=== PATIENT | male | born 1960 | race Caucasian/White ===

== ENCOUNTER 2022-06-21 02:04 | Emergency (ER) | payer OTHER, MEDICARE, SELFPAY ==
[2022-06-21 02:05] VITALS: BP 148/110; PULSE 98; RESP 16; TEMP 36.7; O2SAT 98; BMI 25.0
--- NOTE | 2022-06-21 02:16 | XR_ITS ---
PROCEDURE INFORMATION: Exam: XR Chest Exam date and time: 06/21/2022 2:33 AM Age: 62 years old Clinical indication: Injury or trauma; Fall; Blunt trauma (contusions or hematomas) TECHNIQUE: Imaging protocol: Radiologic exam of the chest. Views: 2 views. COMPARISON: No relevant prior studies available. FINDINGS: Lungs: Calcified granuloma right lower lung. Lungs are hyperinflated. Pleural spaces: No pleural effusion. No pneumothorax. Heart/Mediastinum: Cardiac silhouette is normal in size for technique. Bones/joints: Irregularity along the left lateral 7th and 8th ribs may be acute or chronic. Remaining visualized bony structures appear normal for age. IMPRESSION: 1. Hyperinflated but clear lungs. 2. Irregular the left lateral 7th and 8th ribs could be acute or chronic. No pneumothorax or pulmonary contusion demonstrated.
--- NOTE | 2022-06-21 02:16 | CT_ITS ---
PROCEDURE INFORMATION: Exam: CT Head Without Contrast Exam date and time: 06/21/2022 2:52 AM Age: 62 years old Clinical indication: Injury or trauma; Fall TECHNIQUE: Imaging protocol: Computed tomography of the head without contrast. Radiation optimization: All CT scans at this facility use at least one of these dose optimization techniques: automated exposure control; mA and/or kV adjustment per patient size (includes targeted exams where dose is matched to clinical indication); or iterative reconstruction. REPORTING DATA: Count of CT and Cardiac NM exams in prior 12 months: This patient has received 0 known CTs and 0 known cardiac nuclear medicine studies in the 12 months prior to the current study. COMPARISON: No relevant prior studies available. FINDINGS: Brain: Prominent perivascular space in the right basal ganglia. Overall normal brain architecture with well preserved howard-white junction. No evidence of acute intraparenchymal or extra-axial hemorrhage. Cerebral ventricles: No ventriculomegaly. Paranasal sinuses: There is fluid in the sphenoid sinuses. Remaining paranasal sinuses are clear. Mastoid air cells: Visualized mastoid air cells are well aerated. Auditory system: Prominent cerumen in the right external auditory canal. Bones/joints: Unremarkable. No acute fracture. Soft tissues: Unremarkable. IMPRESSION: No evidence of acute intracranial hemorrhage, mass effect, or edema.
--- NOTE | 2022-06-21 02:16 | CT_ITS ---
PROCEDURE INFORMATION: Exam: CT Cervical Spine Without Contrast Exam date and time: 06/21/2022 2:53 AM Age: 62 years old Clinical indication: Injury or trauma; Fall TECHNIQUE: Imaging protocol: Computed tomography of the cervical spine without contrast. Radiation optimization: All CT scans at this facility use at least one of these dose optimization techniques: automated exposure control; mA and/or kV adjustment per patient size (includes targeted exams where dose is matched to clinical indication); or iterative reconstruction. REPORTING DATA: Count of CT and Cardiac NM exams in prior 12 months: This patient has received 0 known CTs and 0 known cardiac nuclear medicine studies in the 12 months prior to the current study. COMPARISON: CT HEAD/BRAIN WO CON 06/21/2022 2:52 AM FINDINGS: Bones/joints: There is no evidence of acute cervical spine fracture or malalignment. There is diffuse cervical degenerative change with bridging anterior osteophytes and prominent facet arthropathy. There is bilateral neural foraminal stenosis at C3-C4 and left neural foraminal stenosis at C4-C5. Bilateral neural foraminal stenosis is demonstrated at C6-C7. Cervical ribs are noted. Lungs: Lung apices are normal. Vasculature: Mild calcification noted at each carotid bifurcation. Soft tissues: Unremarkable. IMPRESSION: No evidence of acute cervical spine fracture or malalignment. Multifocal neural foraminal stenosis is detailed above. Mild calcification noted at each carotid bifurcation.
--- NOTE | 2022-06-21 02:28 | XR_ITS ---
PROCEDURE INFORMATION: Exam: XR Right Hand Exam date and time: 06/21/2022 2:35 AM Age: 62 years old Clinical indication: Numbness; Upper limb; Right TECHNIQUE: Imaging protocol: Radiologic exam of the right hand. Views: 3 or more views. COMPARISON: CR HANDR3 HAND-RT 3 VIEWS 12/02/2016 3:49 PM FINDINGS: Bones/joints: There is a healed deformity of the 3rd distal phalanx. Mild arthropathy noted at the 1st metacarpophalangeal joint and triscaphe articulation. No evidence of acute fracture or dislocation. Soft tissues: No radiopaque foreign body or soft tissue gas. IMPRESSION: Mild arthropathy. No acute bony injury.
--- NOTE | 2022-06-21 02:28 | XR_ITS ---
PROCEDURE INFORMATION: Exam: XR Right Wrist Exam date and time: 06/21/2022 2:37 AM Age: 62 years old Clinical indication: Numbness; Upper limb; Right TECHNIQUE: Imaging protocol: Radiologic exam of the right wrist. Views: 3 or more views. COMPARISON: CR XR HAND RT MIN 3V 06/21/2022 2:35 AM FINDINGS: Bones/joints: There is a tiny ossicle dorsal to the proximal carpal row compatible with a prior avulsion injury. Mild triscaphe arthropathy. Soft tissues: Normal. Vasculature: Early calcification in the radial artery. IMPRESSION: No acute bony injury. Mild radial artery calcific atherosclerosis.
[2022-06-21 02:45] LABS: Basophils % 0.6 % (0.1-2.0); Eosinophils # 0.1 K/mm3 (0.0-0.4); Eosinophils % 2.3 % (0.1-12.0); Hematocrit 37.2 % (42.0-52.0); Hemoglobin 12.3 g/dL (14.1-18.0); Lymphocytes # 1.3 K/mm3 (0.7-4.5); Lymphocytes % 36.6 % (10-50); Mean Corpuscular Hemoglobin 35.9 pg (27.0-31.2); Mean Corpuscular Volume 108.8 fl (80-94); Mean Platelet Volume 9.1 fl (7.4-10.4); Monocytes # 0.3 K/mm3 (0.1-1.0); Monocytes % 8.9 % (1.7-9.3); Neutrophils # 1.8 K/mm3 (1.8-7.8); Neutrophils % 51.6 % (37.0-80.0); Platelet Count 136 K/mm3 (142-424); Red Blood Count 3.42 M/mm3 (4.60-6.20); Red Cell Distribution Width 14.1 % (11.5-17.5); White Blood Count 3.4 K/mm3 (4.8-10.8)
[2022-06-21 02:54] LABS: Alanine Aminotransferase 38 U/L (12-78); Albumin Level 3.5 g/dl (3.5-5.0); Albumin/Globulin Ratio 1.4 (1.1-1.8); Alkaline Phosphatase 85 U/L (38-126); Anion Gap 11.7 mEq/L (5-15); Aspartate Amino Transferase 97 U/L (17-59); Bilirubin,Total 0.9 mg/dl (0.2-1.3); Blood Urea Nitrogen 7 mg/dl (9-20); Calcium 9.6 mg/dl (8.4-10.2); Carbon Dioxide 28 mmol/L (22.0-30.0); Chloride 95 mmol/L (98-107); Creatinine Clearance Estimated 90 mL/min (50-200); Estimated Glomerular Filt Rate 98 ml/min (>60); GFR (African American) 118 ML/MIN (>60); Globulin 2.5 g/dL (1.3-3.2); Glucose 115 mg/dl (74-100); Potassium 3.7 mmoL/L (3.5-5.1); Sodium 131 mmol/L (136-145)
[2022-06-21 02:55] LABS: Ethyl Alcohol 138 mg/dl (0-10)
--- NOTE | 2022-06-21 03:02 | HMH.EDUPEXT ---
Discharge Plan Disposition Patient Disposition: Home, Self-Care Prescriptions Prescriptions: New prednisone [prednisone] 20 mg tablet 20 mg PO DAILY Qty: 10 0RF Referrals Follow up/Referrals: Provider,Referral, MD [Primary Care Provider] - See instructions Clinical Impressions Clinical Impression: Sprain and strain of wrist, Cervical radicular pain, Blood alcohol, elevated Instructions Patient Instructions: DI for Wrist Strain Discharge ED Provider: Brian (ED)Osmany Upper Extremity HPI General Chief Complaint: Extremity Injury, Upper Stated Complaint: Right hand/arm numbness Time Seen by Provider: 06/21/22 03:02 Mode of Arrival: Ambulatory Source of Information: Patient Limitations: No Limitations Description of Symptoms (Recalled from ER Triage Doc. by RN): pt states that he fell on sunday night then on sunday morning woke up and rt arm was numb and tingling from wrist down. the epiosodes of tingling and numbness has increasing. History of Present Illness HPI narrative: reports fall on sunday and now with tingling rt rt hand with slight pain - intermittent able to use - no aleman or neck pain complaint: injury to: right, wrist and hand Onset (ago): day(s) Other Extremity Injury: Right: hand and wrist Handedness: right Place: home Severity: moderate Context: fall Associated symptoms: weakness, numbness, neck pain and heard/felt popping sensation Related Data Previous Rx's Medication Instructions Recorded prednisone 20 mg tablet 20 mg PO DAILY #10 tabs 06/21/22 Allergies Allergy/AdvReac Type Severity Reaction Status Date / Time No Known Allergies Allergy Unverified 02/20/17 15:35 [facility] Disclaimer: The information contained in this section may have been updated after the patient was seen, as this information can be updated by other users. Social History Smoking Status: Current every day smoker alcohol intake: current current occupational status: unemployed Travel in the last 8 weeks: None ROS Obtained: Yes All systems reviewed & no additional complaints except as documented Physical Exam General General appearance: alert Head Head exam: normocephalic Eye Eye exam: Present PERRL and EOMI ENT ENT exam: Present mucous membranes moist Neck Neck exam: Present full ROM and trachea midline; Absent tenderness or meningismus Respiratory Respiratory exam: Absent respiratory distress Cardiovascular Cardiovascular exam: Present regular rate and systolic murmur Abdominal Exam Abdominal exam: Present soft Extremities Exam Extremities exam: Present full ROM and other (no gross deformity to rt hand/wrist elbow and shoulder with neurovascular intact ) Neurological Exam Neurological exam: Present alert, oriented X3, CN II-XII intact and other (gcs=14); Absent motor sensory deficit Psychiatric Psychiatric exam: Present normal affect Skin Skin exam: Present other (abrasion to lt hand ); Absent rash Medical Decision Making Medical Records Medical records reviewed: Yes I reviewed the patient's medical records. [place] Inquiry Pt receiving controlled substance: No Vital Signs: 06/21/22 02:05 Temperature 98.1 F Temperature Source Oral Pulse Rate [Right] 98 H Respiratory Rate 16 Blood Pressure [Right Arm] 148/110 H Blood Pressure Mean [Right Arm] 122 02 Sat by Pulse Oximetry 98 Lab Data Lab results reviewed: Yes I reviewed the patient's lab results. Lab Results 06/21/22 02:38: WBC 3.4 L, RBC 3.42 L, Hgb 12.3 L, Hct 37.2 L, MCV 108.8 H, MCH 35.9 H, MCHC 33.0, RDW 14.1, Plt Count 136 L, MPV 9.1, Neut % (Auto) 51.6, Lymph % (Auto) 36.6, Perkins % (Auto) 8.9, Eos % (Auto) 2.3, Baso % (Auto) 0.6, Neut # (Auto) 1.8, Lymph # (Auto) 1.3, Perkins # (Auto) 0.3, Eos # (Auto) 0.1, Baso # (Auto) 0.0 06/21/22 02:38: Sodium 131 L, Potassium 3.7, Chloride 95 L, Carbon Dioxide 28, Anion Gap 11.7, BUN 7 L, Creatinine 0.80, Estimated Creat Clear 90, Estimated GFR 98, Est GFR ( Amer)
[2022-06-21 03:51] VITALS: BP 139/87; PULSE 94; RESP 16; TEMP 36.7; O2SAT 98
== END 2022-06-21 05:04 | disposition home or self-care (01) ==
PROVIDERS: Emergency Provider Emergency Medicine
DX: S63.501A Unspecified sprain of right wrist, initial encounter (principal); M54.12 Radiculopathy, cervical region; F17.200 Nicotine dependence, unspecified, uncomplicated; W19.XXXA Unspecified fall, initial encounter
CPT/HCPCS: 70450; 71046; 72125; 73110; 73130; 80053; 85025; 99284; 99285

== ENCOUNTER 2023-12-18 09:20 | Outpatient (CLI) | payer OTHER, MEDICARE, SELFPAY ==
--- NOTE | 2023-12-18 09:30 | XR_ITS ---
FINAL REPORT CLINICAL HISTORY: screening COMPARISON: None FINDINGS: Using L1-4, the bone mineral density of the spine is 1.555 g/cm2, corresponding to T-score of 4.2 which is within normal limits. Using the left hip, the bone mineral density of the femoral neck is 1.142 g/cm2, corresponding to a T-score of 1.6 which is within normal limits. Using the right hip, the bone mineral density of the femoral neck is 1.049 g/cm2, corresponding to a T-score of 0.9 which is within normal limits. FRAX not reported because all T-scores at or above -1.0. NOTE: T-score: Standard deviation compared with peak bone mass of young adult mean. *Following the recommendations of the International Society of Bone densitometry, classification of hip BMD is based on the lower of two T-scores; total hip or femoral neck. IMPRESSION: Normal bone mineral density of the lumbar spine and hips. Reviewed, Interpreted and Dictated by Gibran Self III, MD Transcribed by Patrica Johnson Authenticated and [facility]
== END 2023-12-18 23:59 | disposition home or self-care (01) ==
PROVIDERS: PCP Internal Medicine; Visit Provider Internal Medicine
DX: Z13.820 Encounter for screening for osteoporosis (principal)
CPT/HCPCS: 77080

== ENCOUNTER 2024-01-01 10:45 | Outpatient (CLI) | payer OTHER, MEDICARE, SELFPAY ==
[2024-01-01 18:24] LABS: Basophils % 0.2 % (0.1-2.0); Eosinophils % 0.5 % (0.1-12.0); Hematocrit 41.4 % (42.0-52.0); Hemoglobin 13.5 g/dL (14.1-18.0); Lymphocytes # 0.7 K/mm3 (0.7-4.5); Lymphocytes % 16.5 % (10-50); Mean Corpuscular HGB Conc 32.6 g/dL (31.8-35.4); Mean Corpuscular Volume 110.4 fl (80-94); Mean Platelet Volume 9.2 fl (7.4-10.4); Monocytes # 0.4 K/mm3 (0.1-1.0); Monocytes % 8.2 % (1.7-9.3); Neutrophils # 3.2 K/mm3 (1.8-7.8); Neutrophils % 74.5 % (37.0-80.0); Platelet Count 190 K/mm3 (142-424); Red Blood Count 3.75 M/mm3 (4.60-6.20); Red Cell Distribution Width 13.7 % (11.5-17.5); White Blood Count 4.3 K/mm3 (4.8-10.8)
[2024-01-01 19:02] LABS: Alanine Aminotransferase 18 U/L (12-78); Albumin Level 3.9 g/dl (3.5-5.0); Albumin/Globulin Ratio 1.3 (1.1-1.8); Alkaline Phosphatase 144 U/L (38-126); Anion Gap 16.8 mEq/L (5-15); Aspartate Amino Transferase 56 U/L (17-59); Bilirubin,Total 1.2 mg/dl (0.2-1.3); Blood Urea Nitrogen 7 mg/dl (9-20); Calcium 10.2 mg/dl (8.4-10.2); Carbon Dioxide 27 mmol/L (22.0-30.0); Chloride 97 mmol/L (98-107); Chol/HDL Ratio 1.5 (1-3.5); Cholesterol 164 mg/dl (140-200); Estimated Glomerular Filt Rate 114 ml/min (>60); GFR (African American) 137 ML/MIN (>60); Glucose 70 mg/dl (74-100); HDL Cholesterol 107 mg/dl (40-60); Potassium 4.8 mmoL/L (3.5-5.1); Sodium 136 mmol/L (136-145); Total Protein,Serum 6.9 g/dl (6.3-8.2); Triglycerides 83 mg/dl (30-150); VLDL Cholesterol 17 mg/dL (0-40)
[2024-01-01 19:12] LABS: Direct LDL Cholesterol 50.46 mg/dL (100-129)
[2024-01-01 19:15] LABS: HIV (1&2) Antibody Rapid NONREACTIVE (NONREACTIVE)
[2024-01-01 19:29] LABS: Hemoglobin A1C 5.1 % (4.0-6.0)
[2024-01-01 19:30] LABS: Prostate Specific Ag Screen 3.2 ng/ml (0.0-4.0)
[2024-01-02 11:58] LABS: Vitamin B12 269 pg/mL (239-931)
[2024-01-02 12:02] LABS: Folate 5.87 ng/mL
[2024-01-04 20:10] LABS: HCV Ab Reactive (Non Reactive)
== END 2024-01-01 23:59 | disposition home or self-care (01) ==
LOC: LAB.DROPOF 01-02 12:58
PROVIDERS: PCP Family Medicine; Visit Provider Family Medicine
DX: E11.9 Type 2 diabetes mellitus without complications (principal); K74.60 Unspecified cirrhosis of liver; I48.91 Unspecified atrial fibrillation; Z12.5 Encounter for screening for malignant neoplasm of prostate; R71.0 Precipitous drop in hematocrit; Z79.84 Long term (current) use of oral hypoglycemic drugs
CPT/HCPCS: 80053; 80061; 82607; 82746; 83036; 85025; 86803; 87389; G0103

== ENCOUNTER 2024-01-16 09:08 | Outpatient (CLI) | payer OTHER, SELFPAY ==
--- NOTE | 2024-01-16 09:09 | CT_ITS ---
FINAL REPORT TECHNIQUE: Thin section axial images were obtained from the lung apices to the upper abdomen by computed tomography. Reformatted images were obtained and reviewed. This study was performed with techniques to keep radiation doses al low as reasonably achievable (ALARA). Individualized dose reduction techniques using automated exposure control or adjustment of mA and/or kV according to the patient's size were employed. CLINICAL HISTORY: smoker, 1.5 ppd x 40 years COMPARISON: None FINDINGS: CHEST CT LOW DOSE 63-year-old male, current smoker, [id number] history. CTDI vol (mGy): 2.9 DLP (mGy-cm): 115.68 There is no axillary adenopathy. There is no mediastinal or hilar mass or adenopathy. The heart is normal in size. There is an ascending thoracic aortic aneurysm, measuring 49 mm in diameter. Severe left coronary artery calcifications are present. Mild gynecomastia is noted. There is no pericardial or pleural effusion. There are bilateral pleural calcifications present, greater on the left than on the right. There is mild emphysema and mild pulmonary scarring. Lung window images demonstrate a 5 mm right upper lobe nodule, best seen on image #23 of series 3. There are other less than 5 mm nodules in the lung garcia bilaterally. There is focal scarring in the left lateral lower thorax. A left rib fracture is noted, appears chronic. Limited images of the upper abdomen demonstrate a lobular appearing liver, consistent with cirrhosis.. IMPRESSION: Lung-RADS category 2S, the S designation for the ascending aortic aneurysm, severe left coronary artery calcifications, and lobular liver consistent in appearance with cirrhosis. Recommend 12 month follow up low dose chest CT. Reviewed, Interpreted and Dictated by Gibran Self III, MD Transcribed by Elvia Martinez Authenticated and [facility]
== END 2024-01-16 23:59 | disposition home or self-care (01) ==
LOC: RAD 09:09
PROVIDERS: PCP Family Medicine; Visit Provider Family Medicine
DX: F17.210 Nicotine dependence, cigarettes, uncomplicated (principal)
CPT/HCPCS: 71271